=== PATIENT | female | born 1980 | race Two or more races ===

== ENCOUNTER → 2020-11-10 | Outpatient (CLI) | payer OTHER ==
--- NOTE | 2020-11-10 11:44 | KCIC ---
EXAMINATION: MRI LEFT UPPER EXTREMITY JOINT WITHOUT CONTRAST INDICATIONS: Left wrist instability, bone cyst. Wrist pain along the thumb with capturing of the tae mb metacarpals. TECHNIQUE: Multiplanar multisequence MRI of the left wrist was obtained without contrast. COMPARISON: None. FINDINGS: BONES AND CARTILAGE: No acute fracture. Marrow signal is normal. Cartilage is intact. There are few t iny incidental carpal cysts. No erosions. Tiny osteophytes at the first MCP joint. LIGAMENTS: Scapholunate and lunotriquetral ligaments are grossly intact. The triangular fibrocartilag e complex is intact. TENDONS: Flexor and extensor tendons are intact. No tenosynovitis. OTHER: Median and ulnar nerves are normal. Muscles are normal. There is a 5 x 4 x 2 mm T2 hyperintens e cystic structure at the volar aspect of the radioscaphoid (18, series 6). This is immediately adjac ent to the radial artery. Small amount of fluid in the distal radioulnar joint. Tiny 3 mm cyst or flu id in the prestyloid recess. IMPRESSION: 1. No acute osseous abnormality. 2. 5 mm cystic structure at the volar aspect of the radioscaphoid joint suspicious for a small gangli on cyst. This is immediately adjacent to the radial artery. 3.Additional tiny ganglion cyst versus small amount of fluid in the prestyloid recess. Electronically signed by: Melany Alston MD (11/10/2020 11:42 AM) [id number]
== END ==
LOC: KCIC MRI 08:33
PROVIDERS: ATTEND Physician Assistant
DX: M25.732 Osteophyte, left wrist (principal); M25.332 Other instability, left wrist; M85.68 Other cyst of bone, other site
CPT/HCPCS: 73221